=== PATIENT | male | born 1980 | race Caucasian/White ===

== ENCOUNTER 2017-02-10 08:38 | Emergency (ER) | payer MEDICAID, OTHER ==
[~2017-02-10] VITALS: Ht 180.3 cm; Wt 83.0 kg
[2017-02-10] MEDS ORDERED: DIAZEPAM 5 MG TABLET PO ONE (09:15)
[2017-02-10] MEDS ORDERED: KETOROLAC 60MG/2ML VIAL IM ONE (09:15)
[2017-02-10 10:25] VITALS: BP 104/50
== END 2017-02-10 10:25 | disposition home or self-care (01) ==
LOC: ER 09:03
DX: M54.5 Low back pain (principal); G89.29 Other chronic pain; F17.200 Nicotine dependence, unspecified, uncomplicated
CPT/HCPCS: 96372; 99283; J1885; Z7610